=== PATIENT | male | born 1995 | race American Indian/Alaskan Native ===

== ENCOUNTER 2016-11-21 02:27 | Emergency (ER) | payer OTHER ==
[2016-11-21 02:46] VITALS: BP 133/81
[2016-11-21 03:12] LABS: Basophils % (Auto) 0.1 % (0.0-1.8); Eosinophils % (Auto) 0.6 % (0.0-4.3); Hematocrit 39.5 % (35.5-45.6); Mean Corpuscular HGB Conc 33 % (32-34); Mean Corpuscular Hemoglobin 29 pg (28-32); Mean Corpuscular Volume 89 fl (84-94); Platelet Count 266 K/mm3 (140-440); Red Blood Count 4.45 M/mm3 (3.65-5.03); White Blood Count 6.2 K/mm3 (4.5-11.0)
[2016-11-21 03:34] LABS: Alanine Aminotransferase 34 units/L (7-56); Albumin 3.9 g/dL (3.9-5); Albumin/Globulin Ratio 1.1 %; Alkaline Phosphatase 99 units/L (35-129); BUN/Creatinine Ratio 15.55; Bilirubin,Total 0.2 mg/dL (0.1-1.2); Blood Urea Nitrogen 14 mg/dL (9-20); Carbon Dioxide 27 mmol/L (22-30); Chloride 100.3 mmol/L (98-107); Glucose 104 mg/dL (75-100); Lipase 20 units/L (13-60); Potassium 3.6 mmol/L (3.6-5.0); Sodium 138 mmol/L (137-145); Total Protein 7.5 g/dL (6.3-8.2)
[2016-11-21 03:47] LABS: Anion Gap 14 mmol/L
--- NOTE | 2016-11-25 16:33 | ED Elopement Review ---
ED Pt Elopement review - Results review Lab results: Laboratory Tests 11/21/16 11/21/16 03:01 03:01 WBC 6.2 RBC 4.45 Hgb 13.0 Hct 39.5 MCV 89 MCH 29 MCHC 33 RDW 15.0 Plt Count 266 Lymph % (Auto) 22.6 [place] % (Auto) 9.4 H Eos % (Auto) 0.6 Baso % (Auto) 0.1 Lymph # 1.4 [place] # 0.6 Eos # 0.0 Baso # 0.0 Seg Neutrophils % 67.3 Seg Neutrophils # 4.2 Sodium 138 Potassium 3.6 Chloride 100.3 Carbon Dioxide 27 Anion Gap 14 BUN 14 Creatinine 0.9 Estimated GFR > 60 BUN/Creatinine Ratio 15.55 Glucose 104 H Calcium 9.0 Total Bilirubin 0.2 AST 40 ALT 34 Alkaline Phosphatase 99 Total Protein 7.5 Albumin 3.9 Albumin/Globulin Ratio 1.1 Lipase 20 - Call Back decision Pt Call Back Decision: No action required
== END 2016-11-21 03:01 | disposition left against medical advice (07) ==
LOC: ED 02:27
DX: R11.2 Nausea with vomiting, unspecified (principal); R19.7 Diarrhea, unspecified; Z53.21 Procedure and treatment not carried out due to patient leaving prior to being seen by health care provider
CPT/HCPCS: 36415; 80053; 83690; 85025